=== PATIENT | male | born 1985 | race Caucasian/White ===

== ENCOUNTER 2021-09-30 10:19 | Emergency (ER) | payer OTHER ==
[~2021-09-30] VITALS: Ht 190.5 cm; Wt 86.4 kg
[2021-09-30 13:28] LABS: BASO % 0.6 % (0.0-1.0); EOS # 0.1 10^3/uL (0.0-0.5); EOS % 1.1 % (0.0-3.0); HEMOGLOBIN 15.4 g/dl (13.5-17.5); LYMPH # 1.6 10^3/uL (1.5-5.0); LYMPH % 22.8 % (24.0-44.0); MEAN CORPUSCULAR HEMOGLOBIN 31.4 pg (27.0-33.0); MEAN CORPUSCULAR VOLUME 89.8 fl (80.0-96.0); MONO # 0.7 10^3/uL (0.0-0.8); MONO % 9.5 % (2.0-8.0); NEUTROPHILS # 4.7 10^3/uL (1.5-8.5); NEUTROPHILS % 65.7 % (36.0-66.0); PLATELET COUNT, AUTOMATED 224 10^3/uL (150-450); WHITE BLOOD COUNT 7.2 10^3/uL (4.0-10.0)
[2021-09-30 13:45] LABS: BLOOD UREA NITROGEN 13 MG/DL (7-18); CALCIUM LEVEL 8.9 MG/DL (8.5-10.1); CARBON DIOXIDE LEVEL 27 MEQ/L (21-32); CHLORIDE LEVEL 108 MEQ/L (98-107); CREATININE FOR GFR 1.06 MG/DL (0.70-1.30); GLOMERULAR FILTRATION RATE > 60.0 (>60); GLUCOSE, FASTING 93 MG/DL (70-100); POTASSIUM SERUM 4.1 MEQ/L (3.5-5.1); SODIUM LEVEL 141 MEQ/L (136-145)
[2021-09-30] MEDS ORDERED: TAMSULOSIN 0.4 MG CAP PO ONE (14:10)
[2021-09-30] MEDS ORDERED: FLOM0.4C39 PO (14:13)
[2021-09-30 14:20] VITALS: BP 119/71
== END 2021-09-30 14:21 | disposition home or self-care (01) ==
LOC: M ED 10:19
DX: N13.2 Hydronephrosis with renal and ureteral calculous obstruction (principal)